=== PATIENT | male | born 1985 | race Caucasian/White ===

== ENCOUNTER 2019-12-10 12:53 | Outpatient (RCR) | payer OTHER, SELFPAY ==
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
--- NOTE | 2020-02-27 10:00 | HP.PT.NRP ---
YOBANI LOWE was seen in my office for initial evaluation on 12/10/19. The following Plan of Care was established for this patient: Initial Frequency: 2x /Week Initial Duration: 7WEEKS Patient/Client Instruction: Educate patient on: Condition, Plan of Care For the Purpose of:: To decrease pain, To increase ROM, To improve muscle performance and motor function, To improve ability to perform ADL's, To increase tolerance to activity/condition/position, To improve performance and independence with ADL's, To improve ability of physical actions for home/community/work/leisure, To improve health of tissue, To decrease soft tissue restriction, To increase flexibility/ROM, To improve ability to perform tasks related to life management Therapeutic Exercise to Include: Strength training, Body mechanics, Postural training, Flexibilty training, In an aquatic setting, Dynamic Lumbar Stabilization For the Purpose of:: To decrease pain, To increase ROM, To improve muscle performance and motor function, To improve ability to perform ADL's, To increase tolerance to activity/condition/position, To improve ability of physical actions for home/community/work/leisure, To improve health of tissue, To decrease soft tissue restriction, To increase flexibility/ROM, To improve ability to perform tasks related to life management This patient was last seen in our office . Pertinent comments regarding their Physical therapy will appear below: Patient seen for PT intial Evalutaion for Aquatic PT but didnt return At this point I will be discontinuing this patient from physical therapy. I would be happy to see this patient again in the future if found appropriate by the physician. Thank you! David Talavera, PT, Cert MDT, OCS
== END 2019-12-10 19:00 | disposition home or self-care (01) ==
LOC: PT 12:53
DX: M54.5 Low back pain (principal)
CPT/HCPCS: 97162

== ENCOUNTER → 2021-02-11 13:15 | Outpatient (CLI) | payer MEDICARE, MEDICAID, SELFPAY ==
--- NOTE | 2021-02-11 13:35 | RAD_ITS ---
STUDY: X-RAY - LUMBAR SPINE REASON FOR EXAM: Male, 35 years old. BACK PAIN TECHNIQUE: 3 view(s) of the lumbar spine were obtained. COMPARISON: None FINDINGS: Normal lumbar lordosis. There is no substantial scoliosis. There is a normal alignment of the vertebrae. No evidence for acute fracture or subluxation.. Mild narrowing L3-4 disc space. Mild multilevel endplate spurring. The soft tissue structures are unremarkable. RAD/Lumbar Spine 2 or 3 Views IMPRESSION: Mild degenerative changes. No acute fracture or other significant bony pathology Electronically Signed: Chuck Foster MD at 17:10 EDT , Service support ,
--- NOTE | 2021-02-11 13:35 | RAD_ITS ---
STUDY: X-RAY - CERVICAL SPINE REASON FOR EXAM: Male, 35 years old. BACK PAIN TECHNIQUE: 3 view(s) of the cervical spine were obtained. COMPARISON: None FINDINGS: Normal anterior atlantoaxial articulation. Normal odontoid process. Normal cervical lordosis. No evidence for acute fracture or subluxation.. Multilevel endplate spurring. Postsurgical changes status post fusion at C5-6. One of the surgical screws is broken. There does appear to be very subtle subchondral lucency of the superior endplate of C6 of indeterminate etiology likely representing loosening of the screw although inflammatory disease may have similar appearance. MRI or tagged white blood cell study would be useful for more definitive evaluation if clinically warranted The soft tissue structures are unremarkable. RAD/Cerv Spine 2 or 3 Views IMPRESSION: Spondylosis and postsurgical changes status post fusion of C5-6.. There is a broken screw as well as subchondral lucency likely representing loosening. Inflammatory disease not entirely excluded although less likely. However MRI or tagged white blood cell study would be helpful for further assessment if clinically indicated Electronically Signed: Chuck Foster MD at 17:09 EDT , Service support ,
--- NOTE | 2021-02-11 13:35 | RAD_ITS ---
STUDY: X-RAY - THORACIC SPINE REASON FOR EXAM: Male, 35 years old. BACK PAIN TECHNIQUE: 3 view(s) of the thoracic spine were obtained. COMPARISON: None. FINDINGS: Normal kyphosis of the thoracic spine. There is no substantial scoliosis. No evidence for acute fracture or subluxation. Disc space heights are well-maintained however there is mild multilevel endplate spurring. No lytic or sclerotic bony lesions are evident. The soft tissue structures are unremarkable. RAD/Thoracic Spine 3 Views IMPRESSION: Mild spondylosis. No acute fracture or other significant bony pathology Electronically Signed: Chuck Foster MD at 17:09 EDT , Service support ,
== END ==
PROVIDERS: Referring Provider Anesthesiology Pain Medicine; Visit Provider Anesthesiology Pain Medicine
DX: M54.9 Dorsalgia, unspecified (principal)
CPT/HCPCS: 72040; 72072; 72100

== ENCOUNTER 2022-02-10 10:16 | Emergency (ER) | payer MEDICARE, MEDICAID, SELFPAY ==
[2022-02-10 10:17] VITALS: BP 158/110; PULSE 87; RESP 14; TEMP 36.2; O2SAT 95; BMI 27.9
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
[2022-02-10] MEDS: Ketorolac 15 MG/ML Vial IV ×2 (10:40→12:33)
[2022-02-10] MEDS: 0.9% Normal Saline 1,000 ML 250 ML IV (10:40)
[2022-02-10 10:47] LABS: Bacteria 0 SEEN /hpf (None Seen); Mucous, Urine 0 SEEN /hpf (<or=2+); Squamous Epithelial Cells - UA 0 SEEN /hpf (0-5)
[2022-02-10 10:50] LABS: Color, Urine Yellow (Yellow); Glucose, Dipstick Normal (Normal); Ketone-Dipstick Negative (Negative); Leukocyte Esterase-Dipstick 25 /ul (Negative); Nitrite-Dipstick Negative (Negative); Occult Blood-Urine 50 /ul (Negative); Protein-Dipstick Negative (Negative); Specific Gravity, Urine 1.005 (1.002-1.030); Urine Bilirubin Dipstick Negative (Negative); Urine Clarity Clear (Clear); Urine Urobilinogen Normal (Normal)
[2022-02-10 10:51] LABS: Absolute Lymphocyte Count 2.14 X10^3/uL (0.83-4.51); Absolute Neutrophil Count 9.6 X10^3/uL (2.0-7.7); Basophil% 0.7 % (0-1); Eosinophil# 0.43 X10^3/uL; Eosinophils% 3.2 % (0-5); Hematocrit 40.8 % (40-54); Hemoglobin 13.7 g/dL (13.0-16.5); Lymphocyte # 2.14 X10^3/ul (0.83-4.51); Lymphocyte % 15.7 % (19-41); Mean Corp Hgb Conc 33.6 g/dL (32-36); Mean Corpuscular Hgb 29.3 pg (27.0-32.0); Mean Corpuscular Volume 87.2 fL (80-94); Mean Platelet Vol. 11.3 fl (6.2-12.0); Monocyte# 1.23 X10^3/uL; NRBC Flagged by Analyzer 0 % (0-5); Neutrophil # 9.64 X10^3/uL (2.7-7.7); Neutrophil % 70.7 % (47-70); Platelet Count 330 K/mm3 (150-450); RBC Distribution Width CV 12.3 % (11.6-14.6); RBC Distribution Width SD 39.5 fl (35.1-43.9); Red Blood Count 4.68 M/mm3 (4.6-6.2); White Blood Count 13.6 K/mm3 (4.4-11.0)
--- NOTE | 2022-02-10 10:55 | CT_ITS ---
STUDY: CT ABDOMEN AND PELVIS WITHOUT CONTRAST REASON FOR EXAM: Male, 36 years old. Left flank pain. History of multiple renal stones. RADIATION DOSAGE (If Supplied By Facility): CTDIvol = ( 10 ) mGy, DLP = ( 524.02 ) mGycm TECHNIQUE: Transaxial images were obtained from the dome of the diaphragm to the symphysis pubis without oral contrast, and without intravenous contrast. Sagittal and coronal images were reconstructed. Individualized dose optimization techniques were used for this CT. COMPARISON: Comparison is made with prior study dated 01/09/2017. FINDINGS: The visualized lung bases are unremarkable. The visualized portions of the heart are within normal limits. Normal liver. Normal gallbladder and extrahepatic biliary system. Normal spleen. Normal pancreas. Normal bilateral adrenal glands. Normal right kidney. The left kidney is engorged. Moderate degree of the left hydronephrosis and left hydroureter due to a 6.3 mm calculus at the left ureterovesical junction. Normal visualized stomach. Normal small intestine. There are scattered colonic diverticula consistent with diverticulosis. The appendix is visualized and appears normal. There is scattered atherosclerotic calcification of the abdominal aorta, without a demonstrated aneurysm. Normal inferior vena cava. There is borderline retroperitoneal lymphadenopathy with enlarged nodes no greater than 10mm in the short axis diameter. Normal urinary bladder. There are prostatic calcifications. There is a small umbilical hernia containing fat. Normal osseous structures. CT/Abdomen/Pelvis without Cont IMPRESSION: 6.3 mm calculus at left ureterovesical junction causing a moderate degree of left hydronephrosis and hydroureter. Electronically Signed: Ton Xiao MD at 11:59 EDT ,
[2022-02-10 10:58] LABS: Red Blood Cells-Urine 0-5 SEEN /hpf (0-5); White Blood Cells 0-5 SEEN /hpf (0-5)
[2022-02-10 11:03] LABS: Anion Gap 2 (5-15); BUN 15 mg/dL (7-18); BUN/Creat Ratio 11.4 RATIO (10-20); Chloride 103 mmol/L (98-107); Creatinine, Serum 1.32 mg/dL (0.70-1.30); EST Glomerular Filtration Rate 66 mL/min (>60); Est Glom Filt Rate - Afr Amer 80 mL/min (>60); Estimated Creatinine Clearance 73.72 ml/min; Glucose 104 mg/dL (74-106); Potassium 4.4 mmol/L (3.5-5.1); Sodium Level 134 mmol/L (136-145)
[2022-02-10] MEDS: Morphine 4 MG/ML Syringe IV (12:33)
[2022-02-10 13:01] VITALS: BP 124/73; PULSE 69; RESP 15; O2SAT 99
== END 2022-02-10 13:01 | disposition home or self-care (01) ==
PROVIDERS: Emergency Provider Emergency Medicine; Visit Provider Emergency Medicine
DX: N13.2 Hydronephrosis with renal and ureteral calculous obstruction (principal); N13.4 Hydroureter; F17.210 Nicotine dependence, cigarettes, uncomplicated; Z87.442 Personal history of urinary calculi; Z79.899 Other long term (current) drug therapy
CPT/HCPCS: 74176; 80048; 81001; 85025; 96361; 96374; 96375; 96376; 99283; J7030; A4216

== ENCOUNTER 2022-05-29 07:59 | Outpatient (CLI) | payer MEDICARE, MEDICAID, SELFPAY ==
--- NOTE | 2022-05-29 08:00 | MRI_ITS ---
STUDY: MRI LEFT SHOULDER REASON FOR EXAM: Left shoulder pain for 6 months. TECHNIQUE: Standardized fat and water weighted pulse sequences were obtained in all 3 orthogonal planes. COMPARISON: Radiographs 05/12/2022. FINDINGS: There is mild supraspinatus/infraspinatus tendinosis (T2 sagittal image 16) without discrete tendon tear. Normal subscapularis tendon. Normal teres minor tendon. Normal supraspinatus muscle. Normal infraspinatus muscle. Normal subscapularis muscle. Normal teres minor muscle. Normal glenohumeral articulation. There is a small cyst in the posterior greater tuberosity. There is a possible SLAP lesion (proton-density coronal images 13, 14). Normal intracapsular long biceps tendon. Normal capsulo- ligamentous complex. There is acromioclavicular arthrosis with capsular thickening effacing the subacromial fat (T2 sagittal images 6-8). There is a Type I morphology (flat undersurface), with a neutral orientation. There is no subacromial-subdeltoid bursal fluid. Normal visualized coracohumeral and coracoacromial ligaments. Normal deltoid muscle. Normal trapezius muscle. MRI/Upper Ext Joint Only(Routine) IMPRESSION: Mild supraspinatus/infraspinatus tendinosis without demonstrated rotator cuff tear. Possible SLAP lesion. Acromioclavicular arthrosis. Electronically Signed: Jack Escalante MD at 17:47 EDT ,
--- NOTE | 2022-05-29 08:00 | MRI_ITS ---
STUDY: MRI RIGHT SHOULDER REASON FOR EXAM: Male, 36 years old. RIGHT shoulder pain s/p previous dislocation RIGHT shoulder pain s/p previous dislocation TECHNIQUE: Standardized fat and water weighted pulse sequences were obtained in all 3 orthogonal planes. COMPARISON: 05.12.22 xr. FINDINGS: There is supraspinatus tendinosis with tendon thickening, but without a demonstrated tendon tear. Normal infraspinatus tendon. There is subscapularis tendinosis with tendon thickening, but without a demonstrated tendon tear. Normal teres minor tendon. Normal supraspinatus muscle. Normal infraspinatus muscle. Normal subscapularis muscle. Normal teres minor muscle. Normal glenohumeral articulation. There is a possible SLAP lesion (proton-density coronal images 11). There is a small cyst in the posterior greater tuberosity. Normal intracapsular long biceps tendon. Normal labrum. Normal capsulo- ligamentous complex. Normal rotator interval. 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 There is a Type I morphology (flat undersurface), with a neutral orientation. There is minimal fluid distention of the subacromial bursa, consistent with mild subacromial-subdeltoid bursitis. Normal visualized coracohumeral and coracoacromial ligaments. Normal quadrilateral space. Normal axillary space. Normal deltoid muscle. Normal trapezius muscle. MRI/Upper Ext Joint Only(Routine) IMPRESSION: There is minimal fluid distention of the subacromial bursa, consistent with mild subacromial-subdeltoid bursitis. Possible SLAP lesion. Acromioclavicular arthrosis. Mild supraspinatus/subscapularis tendinosis Electronically Signed: Nick Elena MD at 19:22 EDT Reading Location ID and State: [facility] / [place] , Service support ,
== END 2022-05-29 23:59 | disposition home or self-care (01) ==
LOC: MRI 08:00
DX: M24.411 Recurrent dislocation, right shoulder (principal); M25.511 Pain in right shoulder
CPT/HCPCS: 73221

== ENCOUNTER → 2022-07-05 | Outpatient (CLI) | payer MEDICARE, MEDICAID, SELFPAY ==
--- NOTE | 2022-07-05 10:34 | MRI_ITS ---
STUDY: MR RIGHT SHOULDER ARTHROGRAPHY REASON FOR EXAM: Right shoulder pain for more than 10 years, evaluate for SLAP lesion/labral tear. TECHNIQUE: Standardized fat and water weighted pulse sequences were obtained in all 3 orthogonal planes after intra-articular instillation of dilute gadolinium. COMPARISON: MRI images 05/29/2022, radiographs 05/12/2022. FINDINGS: Normal supraspinatus tendon. Normal infraspinatus tendon. Normal subscapularis tendon. Normal teres minor tendon. Normal supraspinatus muscle. Normal infraspinatus muscle. Normal subscapularis muscle. Normal teres minor muscle. Normal glenohumeral articulation. There is a very small cyst in the posterior aspect of the greater tuberosity. There is a SLAP lesion (T1 coronal images 10-12; T1 axial image 8). Normal intracapsular long biceps tendon. Normal capsulo- ligamentous complex. Normal rotator interval. Normal acromioclavicular articulation. There is a Type I morphology (flat undersurface), with a neutral orientation. There is no subacromial-subdeltoid bursal fluid. Normal visualized coracohumeral and coracoacromial ligaments. There is mild iatrogenic edema in the proximal anterior deltoid muscle. Normal trapezius muscle. MRI/Upper Ext Jt Only W/Contrast IMPRESSION: SLAP lesion. Electronically Signed: Jack Escalante MD at 12:17 EDT ,
--- NOTE | 2022-07-05 10:37 | RAD_ITS ---
CLINICAL HISTORY: Male, 36 years old. Right shoulder pain. Repeat dislocations. PROCEDURE: ARTHROGRAM - RIGHT SHOULDER CONSENT: The procedure as well as some possible complications including infection and bleeding were explained to the patient. Informed consent was obtained. FLUOROSCOPY TIME (if supplied): (33 seconds) minutes/seconds. Injection Information: 10 cc of dilute MRI contrast Number of images obtained: 4 TECHNIQUE: (All elements of maximal sterile barrier technique followed, including US elements as applicable) The patient was in the supine position. The overlying skin was prepped and draped in the usual sterile fashion. Following local anesthetic application and under direct fluoroscopic guidance, a 22-gauge spinal needle was placed into the shoulder joint. 2 cc of ISOVUE 300 was injected for confirmation. Following this, 10 cc of dilute MR contrast was injected. The patient tolerated the procedure well. RAD/Arthrogram Shoulder w/ MRI IMPRESSION: Successful right shoulder arthrogram for MRI examination. The patient tolerated the procedure well. Electronically Signed: Ton Xiao MD at 12:10 EDT ,
[2022-07-05] MEDS: Lidocaine 2% (10 ml mdv) 10 ML Vial INFILT (10:46)
[2022-07-05] MEDS: Iopamidol 10 ML in Syringe 1 EACH 600 ML INTRAARTIC (10:48)
[2022-07-05] MEDS: Gadoterate Meglumine Diluted 10 ML, Iopamidol 5 ML, Lidocaine 1% (20 ml mdv) 5 ML, Epin... INTRAARTIC (10:48)
== END | disposition home or self-care (01) ==
LOC: RAD 10:25
PROVIDERS: Referring Provider Orthopaedic Surgery Sports Medicine; Visit Provider Orthopaedic Surgery Sports Medicine
DX: M25.311 Other instability, right shoulder (principal); M25.511 Pain in right shoulder
CPT/HCPCS: 23350; 73222; 77002; Q9967

== ENCOUNTER 2022-11-03 10:08 | Day surgery (SDC) | payer MEDICARE, MEDICAID, SELFPAY ==
[2022-11-03] MEDS: Lactated Ringers 1,000 ML 15 ML IV (11:14)
[2022-11-03 11:15] VITALS: BP 124/89; PULSE 83; RESP 18; TEMP 37.2; O2SAT 99; BMI 26.6
--- NOTE | 2022-11-03 11:50 | TESH_PTH ---
PATIENT: YOBANI LOWE LOC: [facility] U#:[id number] AGE/SX: 36/M ROOM: RE11/03/[address]: Dr. Allen Amezcua MD : 1985 BED: DIS: 11/03/2022 SPEC #: [id number] RECD: 11/03/22 16:37 STATUS: FELIPE FREDY #: [id number] JAMIN: 11/03/22 11:[address]: Allen Amezcua DEPT: SURGICAL PATHOLOGY RECD BY: Johanne Schmidt ENTERED: 11/04/22 10:17 SP TYPE: TENDON OTHR DR: [facility] Tissues: Tendon and tendon sheath, NOS Procedures: Surgery Specimen Level III HEADER OPERATION: Arthroscopy shoulder, biceps tenodesis, debridement PRE-OP DIAGNOSIS: Superior labrum anterior to posterior tear of right shoulder TISSUE SUBMITTED: Right bicep tendon MICROSCOPIC DIAGNOSIS Right bicep tendon: A piece of dense fibroconnective tissue with reactive changes. SJ:sd 11/05/2022 MICROSCOPIC DESCRIPTION Slides are reviewed. GROSS DESCRIPTION Received in fixative is one container labeled with the patient's name and designated right bicep tendon. The specimen consists of a piece of childs, indurated, tendinous tissue measuring 3 x 1 x 0.3 cm. The entire specimen is submitted in one cassette. / JARON:sd 11/04/2022 TC:5 CPT: 60931
--- NOTE | 2022-11-03 12:55 | HP.PCM_ITS ---
HPI - General HPI Narrative YOBANI LOWE, is a 36 M who presents for right shoulder arthroscopy, SAD and SLAP tear for biceps tenodesis. RAB discussed. No changes to h and p. Wishes to proceed. Narcotic counselling. Right shoulder marked, discussed with anesthesia pre op block. MR#: [id number] Acct: [id number] Name:? YOBANI LOWE Rep #: [id number] : 1985 ? ? Provider: Dr. Allen Amezcua MD Age/Sex:? 36/M ? ? Location: [facility] [place].[facility] Status: Signed Intake Intake Visit Reasons:?RIGHT SHOULDER Allergies meperidine [From Demerol] Adverse Reaction (Verified 10/18/22 11:19) Other Medications buspirone 15 mg tablet 15 mg PO LUNCH 02/10/22 [History Confirmed 10/18/22] buspirone 30 mg tablet 20 mg PO BID 02/10/22 [History Confirmed 10/18/22] meloxicam 7.5 mg tablet 7.5 mg PO DAILY 02/10/22 [History Confirmed 10/18/22] propranolol 120 mg capsule,24 hr,extended release 120 mg PO DAILY 02/10/22 [History Confirmed 10/18/22] trazodone 50 mg tablet 50 mg PO QHS 02/10/22 [History Confirmed 10/18/22] tamsulosin 0.4 mg capsule 0.4 mg PO 05/12/22 [History Confirmed 10/18/22] baclofen 5 mg tablet 10 mg PO 06/04/22 [History Confirmed 10/18/22] PFSH Medical History?(Updated 06/04/22 @ 11:35 by Allen Amezcua MD) Hx of renal calculi Instability of right shoulder joint Kidney stones Neck fracture Pain management Superior labrum cffucopv-du-bacmydidu (SLAP) tear of left shoulder Superior labrum uxulpwtn-na-rwoywuvql (SLAP) tear of right shoulder TBI (traumatic brain injury) Tibia/fibula fracture Surgical History? History of ankle surgery Hx of arthroscopic knee surgery Hx of fusion of cervical spine Social History? Smoking Status:? Current every day smoker tobacco type: cigarettes HPI RIGHT SHOULDER Details: Parts of this documentation were recorded by a scribe, this documentation accurately reflects the service provided and the decisions made by me, Dr. Allen Amezcua MD 10/18/22 3311. YOBANI LOWE is a 36 year old M here today for follow-up right shoulder MRI arthrogram to assess SLAP tear and instability.? He has been doing physical therapy at least 6 weeks now through [facility].? He does have clicking and catching especially anteriorly of the shoulder feels like something is catching and clicking [id number].? No instability episodes.? Still has pain in the shoulder feels like it swells intermittently and worse with lifting he has 2 young children.? He is here with him and his . Ortho Exam General General: Yes no acute distress and Yes well groomed Neurologic: Yes alert and Yes oriented x3 Psychologic: Yes reasonable and appropriate Right Shoulder Testing: Positive Hawkin's, Speed's, TTP Biceps, AROM-Forward Elevation 0-180, PROM-External Rotation at side 0-60 and Howell (caused pain both ways, worse with supination); Negative Neer's, TTP AC Joint, Drop Arm, Apprehension Test, translation or Load and Shift Supplemental Info MR#:? [id number] Acct: [id number] Name:? YOBANI LOWE Rep #: [id number] :?? 1985 M 36 ? From:? ? Jack Escalante MD PCP: [facility] ? Status: REG CLI Study: Upper Ext Jt Only W/Contrast ? Date of Exam: 07/05/22 Exam# [id number] ? Ordering Dr:? Allen Amezcua MD STUDY: ? MR RIGHT SHOULDER ARTHROGRAPHY REASON FOR EXAM: Right shoulder pain for more than 10 years, evaluate for SLAP lesion/labral tear. TECHNIQUE: ? Standardized fat and water weighted pulse sequences were obtained in all 3 orthogonal planes after intra-articular instillation of dilute gadolinium. COMPARISON: ? MRI images 05/29/2022, radiographs 05/12/2022. FINDINGS: Normal supraspinatus tendon. Normal infraspinatus tendon. Normal subscapularis tendon.? Normal teres minor tendon. Normal supraspinatus muscle.? Normal infraspinatus muscle.? Normal subscapularis muscle.? Normal teres minor muscle. Normal glenohumeral articulation.? There is a very small cyst in the posterior aspect of the greater tuberosity.? There is a SLAP lesion (T1 coronal images 10-12; T1 axial image 8).? Normal intracapsular long biceps tendon.? Normal capsulo- ligamentous complex.? Normal rotator interval. Normal acromioclavicular articulation.? There is a Type I morphology (flat undersurface), with a neutral orientation. There is no subacromial-subdeltoid bursal fluid. Normal visualized coracohumeral and coracoacromial ligaments. There is mild iatrogenic edema in the proximal anterior deltoid muscle. Normal trapezius muscle. MRI/Upper Ext Jt Only W/Contrast IMPRESSION: SLAP lesion. ? Electronically Signed: Jack Escalante MD at 12:17 EDT Reading Location ID and State: [facility] / [place] Tel , Service support? , ? Coding Level of Care Code Off vis,est,level 4 Diagnoses Superior labrum qnjlktmi-ks-bnimazxwz (SLAP) tear of right shoulder? S43.431A Time Spent (min) 30 Assessment and Plan Assessment and Plan (1) Superior labrum rbtuhach-us-zdmvnregl (SLAP) tear of right shoulder: ?Status:?Acute ?Plan: 36-year-old man with right shoulder SLAP tear confirmed on MRI arthrogram.? Even on his physical exam with circumduction and range of motion testing of the shoulder it feels like the biceps tendon is subluxing.? He has good range of motion good strength however some mild tendinosis of the supraspinatus tendon on his MRI.? We discussed the nonoperative means of continuing conservative management as well as shoulder surgery.? My recommendation if he is desiring surgical management of this would be right shoulder arthroscopy, biceps tenodesis I perform this in a subpectoral manner with the Arthrex button technology as well as possible debridement and subacromial decompression given the location of his pain occasionally on the lateral side of his arm as well as some mild tendinosis to examine the rotator cuff tendons.? He would like to go ahead with this sign consent form for surgery as well as possible need for blood products. Pros and cons risks and benefits were discussed with the patient including but not limited to infection, pain, stiffness, bleeding, damage to surrounding structures, neurovascular injury, recurrence or retear, failure or wear of hardware or fixation, instability, fracture, deep vein thrombosis and pulmonary embolism, anesthetic risks, patient dissatisfaction, need for further surgery and other risks.? Patient understood and wished to proceed with surgery, and signed the informed consent documentation. COUNT INCLUDES [facility] Medical History (Updated 10/25/22 @ 13:36 by Mercedez Haynes) Abrasion Anxiety Arthritis Back pain Chronic cough Former smoker History of renal disease Hx of renal calculi Injury of head and neck Instability of right shoulder joint Kidney stones Marijuana use Migraine headache MRSA infection Neck fracture Pain management Superior labrum ojaqcuug-ja-ulhfvxrql (SLAP) tear of left shoulder Superior labrum wnsexbam-pa-frqifdnfj (SLAP) tear of right shoulder TBI (traumatic brain injury) Tibia/fibula fracture Home Medications buspirone 15 mg tablet 15 mg PO LUNCH 02/10/22 [History Last Taken Unknown] buspirone 30 mg tablet 20 mg PO BID 02/10/22 [History Last Taken 11/03/22] meloxicam 7.5 mg tablet 7.5 mg PO DAILY 02/10/22 [History Last Taken Unknown] propranolol 120 mg capsule,24 hr,extended release 120 mg PO DAILY 02/10/22 [History Last Taken 11/03/22] trazodone 50 mg tablet 50 mg PO QHS 02/10/22 [History Last Taken Unknown] tamsulosin 0.4 mg capsule 0.4 mg PO DAILY 05/12/22 [History Last Taken Unknown] baclofen 5 mg tablet 10 mg PO DAILY 06/04/22 [History Last Taken Unknown] Allergy/AdvReac Type Severity Reaction Status Date / Time meperidine [From Demerol] AdvReac Other Verified 10/18/22 11:19 Surgical History (Updated 10/25/22 @ 13:36 by Mercedez Haynes) History of ankle surgery History of surgery Hx of arthroscopic knee surgery Hx of fusion of cervical spine Social History Smoking Status: Current every day smoker tobacco type: cigarettes Vital Signs Vital Signs Vital Signs: 11/03/22 11:15 11/03/22 11:15 Temperature 98.9 F Temperature Source Temporal Pulse Rate 83 Respiratory Rate 18 Respiratory Pattern Normal Blood Pressure 124/89 H Blood Pressure Mean 100 Blood Pressure Source Monitor Blood Pressure Position Semi-Fowlers Blood Pressure Location Left Arm Pulse Ox 99 Oxygen Delivery Method Room Air Weight Weight: 170 lb Body Mass Index (BMI) 26.6
[2022-11-03] MEDS: Cefazolin 2 GM in 0.9% Normal Saline 100 ML IV (13:30)
--- NOTE | 2022-11-03 14:52 | DCINST_ITS ---
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 Discharge Plan Admission Attending Provider: Allen Amezcua Primary Care Provider: [facility] Discharge Orders/Prescriptions Prescriptions: New oxycodone-acetaminophen [Percocet] 5-325 mg tablet 1 tab PO Q4H MDD 6 PRN (Reason: pain) 7 Days Qty: 30 0RF No Action tamsulosin 0.4 mg capsule 0.4 mg PO DAILY Label Comments: TAKE 1 CAPSULE BY MOUTH EVERYDAY AT BEDTIME baclofen 5 mg tablet 10 mg PO DAILY Label Comments: TAKE 1 TABLET BY MOUTH EVERY DAY trazodone 50 mg Tablet 50 mg PO QHS meloxicam 7.5 mg Tablet 7.5 mg PO DAILY buspirone [BuSpar] 30 mg Tablet 20 mg PO BID propranolol 120 mg Capsule,Extended Release 24 Hr 120 mg PO DAILY buspirone [BuSpar] 15 mg Tablet 15 mg PO LUNCH Referrals / Follow Up: Allen Amezcua MD [Med Staff - Active Staff] - [facility] [Primary Care Provider] - Disposition Disposition (needs filled in before D/C Order can be placed): Home, Self Care
--- NOTE | 2022-11-03 14:56 | PCM.OPRPT ---
Problems Associated Problem List Diagnoses (1) Superior labrum ofzduxht-kk-rizqtgyxj (SLAP) tear of right shoulder: Report of Operation Date of Procedure: 11/03/22 Pre-Operative Diagnosis: right slap tear and impingement Post-Operative Diagnosis: same Surgery/Procedure Performed:: right shoulder arthroscopy, subpectoral biceps tenodesis, subacromial decompression Description of Surgical Findings:: type 2 slap, moderate bursitis inflammatory Surgeon: Allen Amezcua Type of Anesthesia: Block,Regional and General Anesthesiologist: Sunil Marroquin Estimated Blood Loss (mL): 50 Description of Procedure: Patient brought to the operating room theater.? Placed supine on the operating room table.? All bony prominences appropriately padded.? SCDs on legs.? General anesthesia induced.? 2 g IV Ancef administered prior to the start of the procedure.? Patient transferred right side up lateral decubitus.? Axillary roll used.? 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 Upper extremity prepped and draped in the usual sterile fashion with chlorhexidine-based prep solution allowing over 3 minutes drying time prior to draping.? Sleeve with 10 pounds traction with the arm in 30 degrees of abduction was used.? Preoperative timeout performed to confirm the site patient and surgery. Began by inserting the arthroscope through a standard posterior portal into the intra-articular portion of the right shoulder.? Cartilage was normal on both sides.? Anterior and posterior labrum normal. Subscapularis was normal.? No loose bodies. Axillary recess and bare area normal.? Undersurface of the supraspinatus normal. Anterior portal was made through the rotator interval just posterior to the biceps tendon through an inside-out spinal needle localization procedure.? Superior aspect of the biceps had a type II SLAP with fraying and partial detachment.? I elected to perform a biceps tenotomy in preparation for subpectoral biceps tenodesis.? The rest of the intra-articular portion of the shoulder appeared normal.? Remaining biceps stump and superior labrum gently debrided to stable margins. I then inserted the arthroscope into the subacromial space.? There is moderate amount of inflammatory bursitis.? I performed a complete bursectomy through an accessory lateral portal.? I debrided the undersurface of the acromion.? Slight prominence under surface acromion.? I used a chanelle to perform a subacromial decompression to flat smooth margins.? I took arthroscopy pictures throughout.? Again I probed on the superior and inferior surface of the rotator cuff to ensure that there was no partial-thickness tears.? Supraspinatus and IS tendon appeared healthy. I then turned my attention to the open part of the operation.? Made a small 1.5 inch incision centered over the long head of the biceps tendon distal to the pectoralis major insertion.? I carried the dissection down through skin and subcutaneous tissue achieved meticulous hemostasis.? I incised the fascial layer.? I retracted the cephalic vein medially.? Identified long head of the biceps I delivered this through the incision.? I used the Arthrex button loop technique 5 throws with a #2 FiberWire suture on a straight Kris needle.? I locked the suture distally cut at the splice.? I passed the suture tails in opposite directions through the metal button.? I then used the spade tip drill bit at the biceps groove just distal to the pectoralis major insertion.? I drilled uni cortically in the groove.? Irrigated.? I passed and? flipped the button then delivered the tendon to the tunnel.? I then used Ward needle to deliver 1 suture tail through the long head of biceps and then 5 interrupted half hitches to lock this and cut the suture short.? Again wound thoroughly irrigated subcutaneous tissue closed with 2-0 Vicryl and skin with 3-0 Monocryl.? Meticulous hemostasis.? Skin cleaned with wet and dry dressing followed by Steri-Strips Adaptic 4 x 4 gauze abdominal pads and cloth tape with a sling for the upper extremity. Patient woken up for the general anesthetic transferred off the operating room table and taken to postanesthetic care unit in stable condition.? All sponge needle instrument counts were correct no complications.? Plan to the patient gentle pendulum exercises 4 times a day and follow-up in the office in 2 days time. Spoke with Margarita after the operation, again post op instructions relayed. Narcotic counselling. Grafts/Implants Used: arthrex biceps metal button Complications none Admit VTE Documentation VTE Present on Admission: No VTE Mechan Device Prophylaxis: SCD's Reason prophylaxis not ordered:: Treatment Not Indicated Procedures Musculoskeletal [id number]: Other Procedure See Report
[2022-11-03 15:05] VITALS: BP 124/89; BP 135/81; PULSE 75; RESP 16; TEMP 36.4; O2SAT 96
[2022-11-03 15:15] VITALS: BP 124/89; BP 134/89; PULSE 61; RESP 18; O2SAT 97
--- NOTE | 2022-11-03 15:20 | SUR.PHASEI ---
Placed ice to right shoulder.
[2022-11-03 15:30] VITALS: BP 124/89; BP 132/97; PULSE 62; RESP 16; O2SAT 99
[2022-11-03 15:40] VITALS: BP 124/89; BP 132/100; PULSE 63; RESP 18; TEMP 36.3; O2SAT 96
[2022-11-03 16:35] VITALS: BP 124/89
== END 2022-11-03 16:59 | disposition home or self-care (01) ==
LOC: SDC 10:08 → AC 10:09
PROVIDERS: Referring Provider Orthopaedic Surgery Sports Medicine; Visit Provider Orthopaedic Surgery Sports Medicine
PROC: (CPT 29805; principal; 2022-11-03 11:30)
DX: S43.431A Superior glenoid labrum lesion of right shoulder, initial encounter (principal); F17.200 Nicotine dependence, unspecified, uncomplicated; R05.3 Chronic cough; Z98.1 Arthrodesis status; M25.811 Other specified joint disorders, right shoulder
CPT/HCPCS: 29822; 29826; 01630; 88304; J7120; J2405

== ENCOUNTER 2023-08-09 15:00 | Emergency (ER) | payer MEDICARE, MEDICAID, SELFPAY ==
[2023-08-09 15:01] VITALS: BP 111/83; PULSE 70; RESP 18; TEMP 36.2; O2SAT 100; BMI 26.2
--- NOTE | 2023-08-09 15:09 | CT_ITS ---
STUDY: CT ABDOMEN AND PELVIS WITHOUT CONTRAST REASON FOR EXAM: Male, 37 years old. Kidney Stone. Right flank pain. RADIATION DOSAGE (If Supplied By Facility): CTDIvol = ( 7.54 ) mGy, DLP = ( 389.91 ) mGycm TECHNIQUE: Transaxial images were obtained from the dome of the diaphragm to the symphysis pubis without oral contrast, and without intravenous contrast. Sagittal and coronal images were reconstructed. Individualized dose optimization techniques were used for this CT. COMPARISON: Comparison is made with prior study dated February 10, 2022. FINDINGS: The visualized lung bases are unremarkable. The visualized portions of the heart are within normal limits. Normal liver. Normal gallbladder and extrahepatic biliary system. Normal spleen. Normal pancreas. Normal bilateral adrenal glands. Minimal fullness of the right renal pelvis. Normal left kidney. Normal visualized stomach. Normal small intestine. There are scattered colonic diverticula consistent with diverticulosis. There are surgical clips in the region of the appendix consistent with a prior appendectomy. Normal abdominal aorta. Normal inferior vena cava. Normal retroperitoneum. Diffuse bladder wall thickening although the bladder is not completely distended at this time. There are prostatic calcifications. There is a small umbilical hernia containing fat. Normal osseous structures. CT/Abdomen/Pelvis without Cont IMPRESSION: No obstructive uropathy is seen at this time. Electronically Signed: Ton Xiao MD at 15:46 EDT ,
--- NOTE | 2023-08-09 15:10 | ED.VIS.BACK ---
HPI History of Present Illness Chief Complaint: Back Informant: patient Narrative Narrative: Worsening nontraumatic back pain over 2 days. Pain now radiating around his right side. No urinary symptoms. No nausea or vomiting. History of kidney stones, last time this past spring that passed on his own. He is required intervention in the past. He is followed by [facility] urology along with [place] [facility]. Denies history gastric ulcers or kidney injury. Denies pain down the legs. Denies any bowel or bladder issues. Prior similar symptoms: Yes PFSH PFSH Medical History Abrasion Anxiety Arthritis Back pain Chronic cough Former smoker History of renal disease Hx of renal calculi Injury of head and neck Instability of right shoulder joint Kidney stones Marijuana use Migraine headache MRSA infection Neck fracture Pain management Superior labrum vfklljou-jm-pjamjidpl (SLAP) tear of left shoulder Superior labrum mziibcsf-lz-giejuhase (SLAP) tear of right shoulder TBI (traumatic brain injury) Tibia/fibula fracture Home Medications buspirone 15 mg tablet 15 mg PO LUNCH 02/10/22 [History Last Taken Unknown] buspirone 30 mg tablet 20 mg PO BID 02/10/22 [History Last Taken 11/03/22] meloxicam 7.5 mg tablet 7.5 mg PO DAILY 02/10/22 [History Last Taken Unknown] propranolol 120 mg capsule,24 hr,extended release 120 mg PO DAILY 02/10/22 [History Last Taken 11/03/22] trazodone 50 mg tablet 50 mg PO QHS 02/10/22 [History Last Taken Unknown] tamsulosin 0.4 mg capsule 0.4 mg PO DAILY 05/12/22 [History Last Taken Unknown] baclofen 5 mg tablet 10 mg PO BID 01/31/23 [History Last Taken Unknown] Allergy/AdvReac Type Severity Reaction Status Date / Time meperidine [From Demerol] AdvReac Other Verified 08/09/23 15:01 Surgical History History of ankle surgery History of surgery Hx of arthroscopic knee surgery Hx of fusion of cervical spine Social History Smoking Status: Current every day smoker tobacco type: cigarettes ROS ROS ED Constitutional Constitutional ED: Denies chills, fever(s) or sweats Eyes Eyes: Denies change in vision ENT ENT ED: Denies dysphagia or sore throat Cardiovascular Cardiovascular: Denies chest pain, leg edema, palpitations or racing heartbeat Respiratory/Chest Respiratory/Chest: Denies cough, dyspnea or dyspnea on exertion Gastrointestinal Gastrointestinal: Denies abdominal pain, diarrhea, nausea or vomiting Genitourinary Genitourinary ED: Denies dysuria, hematuria or urinary frequency Musculoskeletal Musculoskeletal: Reports back pain; Denies extremity pain or neck pain Integumentary Denies rash or wounds Neurologic Neurologic: Denies headache(s), paresthesias or weakness EXAM Physical Exam Const Vital Signs: 08/09/23 15:01 Temperature 97.1 F L Temperature Source Temporal Pulse Rate 70 Respiratory Rate 18 Blood Pressure 111/83 H Blood Pressure Mean 92 Pulse Ox 100 Oxygen Delivery Method Room Air Positive well nourished and well developed Constitutional Narrative: Nontoxic, mild sweats. General Appearance ED: well developed HEENT Reports moist mucous membranes normocephalic and atraumatic Eyes PERRL, EOMs intact bilaterally and conjunctivae normal General Eye ED: Yes normal appearance of both eyes Neck no lymphadenopathy and supple General: Negative for tenderness Chest Wall Chest: Negative for tenderness Resp normal respiratory effort and normal air movement Effort and Inspection: symmetric chest movement; Negative for respiratory distress Cardio regular rate, regular rhythm and no murmurs Peripheral Pulses: pulses 2+ throughout GI normal to inspection, nondistended, normoactive bowel sounds and non-tender Palpation: Negative for guarding or rebound tenderness present Back/Spine no CVA tenderness and no thoracic nor lumbar tenderness Extremity normal to inspection General Extremety ED: Negative for edema or tenderness General Extremity: Negative for edema Neuro oriented x3 and no sensory deficits noted Sensorium / Orientation: awake and alert Skin no rashes or lesions noted and no wounds MDM MDM MDM Narrative Medical decision making narrative: Interventions / MDM: Differential diagnosis: Kidney stones, musculoskeletal pain Diagnosis considered but do not suspect: Shingles however no current rash, no cauda equina symptoms My EKG interpretation: N/A Imaging independently reviewed and interpreted by myself: CT abdomen pelvis: No acute process also read by radiology. External documents reviewed: N/A Test considered but not ordered:N/A ED course: Patient nontoxic, vital stable. Radiating pain from the flank. Renal stone protocol initiated. IV fluids Toradol morphine ordered. CT scan ordered. 1600: Clinically feeling better on reexamination. Labs slight leukocytosis 11.7. Urine negative for infection.CT scan for any acute process. Unclear in etiology, he has no cauda equina symptoms. He reports [facility] He will keep these planned image studies. He does follow pain management for cervical spine injections from injuries in the past. He has ibuprofen at home to use as needed. All questions were answered. Re-evaluation: stable Disposition discussed with patient/family/significant other: Patient Case discussed with consulting clinician: N/A This note was generated with [employer] dictation software. It may contain incorrect words, spelling, and punctuation that were not noted in checking the note before signing. Lab Data Attestation: I reviewed the patient's lab results. Labs: Laboratory Results - last 24 hr 08/09/23 08/09/23 15:15 15:22 WBC 11.7 H RBC 4.58 L Hgb 13.5 Hct 41.3 MCV 90.2 MCH 29.5 MCHC 32.7 RDW Std Deviation 45.1 H RDW Coeff of Dayana 13.5 Plt Count 300 MPV 10.9 Immature Gran % (Auto) 0.700 Neut % (Auto) 57.0 Lymph % (Auto) 28.0 [place] % (Auto) 8.9 Eos % (Auto) 4.6 Baso % (Auto) 0.8 Absolute Neuts (auto) 6.7 Absolute Lymphs (auto) 3.27 Nucleated RBC % 0 Sodium 138 Potassium 4.3 Chloride 104 Carbon Dioxide 31.0 Anion Gap 3 L BUN 11 Creatinine 1.10 Estim Creat Clear Calc 87.63 Est GFR (MDRD) Af Amer 98 Est GFR (MDRD) Non-Af 81 BUN/Creatinine Ratio 10.0 Glucose 103 Calcium 9.1 Urine Color Yellow Urine Clarity Clear Urine pH 6.5 Ur Specific [place] 1.015 Urine Protein Negative Urine Glucose (UA) Normal Urine Ketones Negative Urine Occult Blood Negative Urine Nitrite Negative Urine Bilirubin Negative Urine Urobilinogen Normal Ur Leukocyte Esterase Negative Urine RBC 0 SEEN Urine WBC 0 SEEN Ur Squamous Epith Cells 0 SEEN Urine Bacteria 0 SEEN Urine Mucus 0 SEEN Radiography Diagnostic Testing: Clinical Impression(s) from Imaging Studies Abdomen/Pelvis CT 08/09/23 15:09 IMPRESSION: No obstructive uropathy is seen at this time. Electronically Signed: Ton Xiao MD at 15:46 EDT , Discharge Plan Triage Chief Complaint: Back Other Complaint: Flank Pain ED Provider: Eldon Drake Dx/Rx/DC Orders Clinical Impression: Acute right flank pain Instructions: ED Flank Pain, Uncertain Cause Prescriptions: No Action tamsulosin 0.4 mg capsule 0.4 mg PO DAILY Patient Comments: TAKE 1 CAPSULE BY MOUTH EVERYDAY AT BEDTIME baclofen 5 mg tablet 10 mg PO BID Patient Comments: TAKE 1 TABLET BY MOUTH EVERY DAY trazodone 50 mg Tablet 50 mg PO QHS meloxicam 7.5 mg Tablet 7.5 mg PO DAILY buspirone [BuSpar] 30 mg Tablet 20 mg PO BID propranolol 120 mg Capsule,Extended Release 24 Hr 120 mg PO DAILY buspirone [BuSpar] 15 mg Tablet 15 mg PO LUNCH Primary Care Provider: [facility] Referrals: [facility] [Primary Care Provider] - 3-5 Days Activity Restrictions/Additional Instructions: Continue plans with your MRI studies of your spine tomorrow. Your CT abdomen pelvis are negative today. Continue ibuprofen at home up to 600 mg every 6 hours. Disposition Disposition: Home, Self Care
[2023-08-09] MEDS: Ketorolac 30 MG/ML Syringe 15 MG IV (15:20)
[2023-08-09] MEDS: 0.9% Normal Saline (1000mL) 1,000 ML 250 ML IV (15:20)
[2023-08-09] MEDS: Morphine 4 MG/ML Syringe IV (15:21)
[2023-08-09 15:28] LABS: Bacteria 0 SEEN /hpf (None Seen); Mucous, Urine 0 SEEN /hpf (<or=2+); Red Blood Cells-Urine 0 SEEN /hpf (0-5); Squamous Epithelial Cells - UA 0 SEEN /hpf (0-5); White Blood Cells 0 SEEN /hpf (0-5)
[2023-08-09 15:30] LABS: Color, Urine Yellow (Yellow); Glucose, Dipstick Normal (Normal); Ketone-Dipstick Negative (Negative); Leukocyte Esterase-Dipstick Negative /ul (Negative); Nitrite-Dipstick Negative (Negative); Occult Blood-Urine Negative /ul (Negative); Protein-Dipstick Negative (Negative); Specific Gravity, Urine 1.015 (1.002-1.030); Urine Bilirubin Dipstick Negative (Negative); Urine Clarity Clear (Clear); Urine Urobilinogen Normal (Normal); Urine pH 6.5 (5.0 - 8.0)
[2023-08-09 15:33] LABS: Absolute Lymphocyte Count 3.27 X10^3/uL (0.83-4.51); Absolute Neutrophil Count 6.7 X10^3/uL (2.0-7.7); Basophil# 0.09 X10^3/uL; Basophil% 0.8 % (0-1); Eosinophil# 0.54 X10^3/uL; Eosinophils% 4.6 % (0-5); Hematocrit 41.3 % (40-54); Hemoglobin 13.5 g/dL (13.0-16.5); Lymphocyte # 3.27 X10^3/ul (0.83-4.51); Mean Corp Hgb Conc 32.7 g/dL (32-36); Mean Corpuscular Hgb 29.5 pg (27.0-32.0); Mean Corpuscular Volume 90.2 fL (80-94); Mean Platelet Vol. 10.9 fl (6.2-12.0); Monocyte# 1.04 X10^3/uL; Monocyte% 8.9 % (0-10); NRBC Flagged by Analyzer 0 % (0-5); Neutrophil # 6.65 X10^3/uL (2.7-7.7); Platelet Count 300 K/mm3 (150-450); RBC Distribution Width CV 13.5 % (11.6-14.6); RBC Distribution Width SD 45.1 fl (35.1-43.9); Red Blood Count 4.58 M/mm3 (4.6-6.2); White Blood Count 11.7 K/mm3 (4.4-11.0)
[2023-08-09 15:41] LABS: Anion Gap 3 (5-15); BUN 11 mg/dL (7-18); Calcium,Total 9.1 mg/dL (8.5-10.1); Chloride 104 mmol/L (98-107); EST Glomerular Filtration Rate 81 mL/min (>60); Est Glom Filt Rate - Afr Amer 98 mL/min (>60); Estimated Creatinine Clearance 87.63 ml/min; Glucose 103 mg/dL (74-106); Potassium 4.3 mmol/L (3.5-5.1); Sodium Level 138 mmol/L (136-145)
[2023-08-09 16:10] VITALS: BP 117/80; PULSE 66; RESP 16; O2SAT 100
== END 2023-08-09 16:15 | disposition home or self-care (01) ==
PROVIDERS: Emergency Provider Emergency Medicine; Visit Provider Emergency Medicine
DX: R10.9 Unspecified abdominal pain (principal); F17.210 Nicotine dependence, cigarettes, uncomplicated
CPT/HCPCS: 74176; 80048; 81001; 85025; 96361; 96374; 96375; 99283; J7030; A4216

== ENCOUNTER 2024-05-01 13:05 | Emergency (ER) | payer MEDICARE, MEDICAID, SELFPAY ==
[2024-05-01] VITALS (8 sets, daily range): BP systolic 111–126; BP diastolic 64–83; PULSE 89–107; RESP 14–18; TEMP 36.5–37.2; O2SAT 97–100; BMI 23.5
--- NOTE | 2024-05-01 15:15 | RAD_ITS ---
STUDY: X-RAY CHEST REASON FOR EXAM: Male, 38 years old. Fever. TECHNIQUE: Frontal view of the chest COMPARISON: None. FINDINGS: The lungs are clear. There are no pleural effusions. There is no pneumothorax. The heart is normal in size. The visualized osseous structures are within normal limits. RAD/Chest 1 View (Portable) IMPRESSION: No acute thoracic pathology. Electronically Signed: Carl Quiros MD at 15:54 EDT ,
[2024-05-01 15:30] LABS: Mucous, Urine 0 SEEN /hpf (<or=2+); Red Blood Cells-Urine 0 SEEN /hpf (0-5); Squamous Epithelial Cells - UA 0 SEEN /hpf (0-5); White Blood Cells 0 SEEN /hpf (0-5)
[2024-05-01 15:34] LABS: Color, Urine Yellow (Yellow); Glucose, Dipstick Normal (Normal); Ketone-Dipstick Negative (Negative); Leukocyte Esterase-Dipstick Negative /ul (Negative); Nitrite-Dipstick Negative (Negative); Occult Blood-Urine Negative /ul (Negative); Protein-Dipstick Negative (Negative); Urine Bilirubin Dipstick Negative (Negative); Urine Clarity Clear (Clear); Urine Urobilinogen Normal (Normal)
[2024-05-01] MEDS: oxyCODONE 5 MG Tablet 10 MG PO (15:44)
[2024-05-01 15:46] LABS: Amorphous Sediment 2+; Bacteria 1+ /hpf (None Seen)
[2024-05-01] MEDS: diazePAM 5 MG Tablet PO (15:53)
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
[2024-05-01 16:03] LABS: Absolute Lymphocyte Count 1.77 X10^3/uL (0.83-4.51); Absolute Neutrophil Count 7.7 X10^3/uL (2.0-7.7); Basophil# 0.04 X10^3/uL; Basophil% 0.4 % (0-1); Eosinophil# 0.24 X10^3/uL; Eosinophils% 2.2 % (0-5); Hematocrit 27.6 % (40-54); Hemoglobin 8.3 g/dL (13.0-16.5); Lymphocyte # 1.77 X10^3/ul (0.83-4.51); Lymphocyte % 16.3 % (19-41); Mean Corp Hgb Conc 30.1 g/dL (32-36); Mean Corpuscular Hgb 26.5 pg (27.0-32.0); Mean Corpuscular Volume 88.2 fL (80-94); Mean Platelet Vol. 9.3 fl (6.2-12.0); Monocyte# 0.97 X10^3/uL; Monocyte% 8.9 % (0-10); NRBC Flagged by Analyzer 0 % (0-5); Neutrophil # 7.69 X10^3/uL (2.7-7.7); Neutrophil % 70.5 % (47-70); POSITIVE COUNT YES; Platelet Count 877 K/mm3 (150-450); RBC Distribution Width CV 16.7 % (11.6-14.6); RBC Distribution Width SD 53.7 fl (35.1-43.9); Red Blood Count 3.13 M/mm3 (4.6-6.2); White Blood Count 10.9 K/mm3 (4.4-11.0)
[2024-05-01 16:30] LABS: ALB/GLOB Ratio 0.5 RATIO (0.9-2.4); AST(SGOT) 118 U/L (15-37); Alanine Aminotransfer ALT/SGPT 129 U/L (16-61); Albumin, Serum 2.4 g/dL (3.2-5.0); Alkaline Phosphatase 397 U/L (45-117); Anion Gap 4 (5-15); BUN 20 mg/dL (7-18); BUN/Creat Ratio 22.7 RATIO (10-20); Calcium,Total 9.6 mg/dL (8.5-10.1); Chloride 99 mmol/L (98-107); Creatinine, Serum 0.88 mg/dL (0.70-1.30); EST Glomerular Filtration Rate 104 mL/min (>60); Est Glom Filt Rate - Afr Amer 126 mL/min (>60); Globulin 5.2 g/dL (2.2-4.2); Glucose 98 mg/dL (74-106); Potassium 4.7 mmol/L (3.5-5.1); Protein, Total 7.6 g/dL (6.4-8.2); Sodium Level 133 mmol/L (136-145)
--- NOTE | 2024-05-01 17:19 | US_ITS ---
STUDY: Right upper quadrant GALLBLADDER REASON FOR VISIT: Male, 38 years old. TECHNIQUE: Ultrasound evaluation of the right upper quadrant was performed with real-time and static gaytan-scale imaging. TECHNICAL QUALITY: Adequate. COMPARISON: None. FINDINGS: Liver is enlarged measuring 16.8 cm demonstrating diffusely increased echogenicity. There is no mass or bile duct dilatation. Gallbladder: Normal distended gallbladder. The gallbladder wall measures 2 mm. There is a negative sonographic Alcazar''s sign. There is no pericholecystic fluid. There are no gallstones. Pancreas is normal in size and homogeneous echogenicity. Common Bile Duct (C.B.D.): The common bile duct measures 4 mm. Right kidney measures 13.7 x 6.2 x 6 cm. There are multiple nonobstructing calculi the largest measuring 1.1 x 0.7 x 0.6 cm US/Gallbladder IMPRESSION: Enlarged nonspecific fatty infiltrated liver. No evidence for gallstones or acute cholecystitis. Incidental finding of right nephrolithiasis.. Electronically Signed: Chuck Foster MD at 18:36 EDT ,
[2024-05-01] MEDS: Morphine 4 MG/ML Syringe IV ×2 (18:13→20:35)
[2024-05-03 14:20] LABS: Pathologist Review Reviewed
== END 2024-05-01 20:59 | disposition home or self-care (01) ==
PROVIDERS: Emergency Provider Emergency Medicine; Visit Provider Emergency Medicine
DX: R50.9 Fever, unspecified (principal); D64.9 Anemia, unspecified; S12.600D Unspecified displaced fracture of seventh cervical vertebra, subsequent encounter for fracture with routine healing; S40.211D Abrasion of right shoulder, subsequent encounter; S70.312D Abrasion, left thigh, subsequent encounter; V29.99XD Rider (driver) (passenger) of other motorcycle injured in unspecified traffic accident, subsequent encounter; Z79.01 Long term (current) use of anticoagulants; Z79.899 Other long term (current) drug therapy; Z87.891 Personal history of nicotine dependence
CPT/HCPCS: 71045; 76705; 80053; 81001; 85025; 87040; 96374; 96376; 99284; A4216

== ENCOUNTER → 2024-06-07 | Outpatient (CLI) | payer MEDICARE, MEDICAID, OTHER, SELFPAY ==
[2024-06-07 17:13] LABS: Amphetamine Urine VISTA NEGATIVE (<1000 ng/mL); Barbiturate Urine VISTA NEGATIVE (< 200 ng/mL); Benzodiazepine Urine VISTA POSITIVE (< 200 ng/mL); Cocaine Urine VISTA NEGATIVE (< 300 ng/mL); Ecstacy Urine VISTA NEGATIVE (< 500 ng/mL); Methadone Urine VISTA NEGATIVE (< 300 ng/mL); PCP Urine VISTA NEGATIVE (< 25 ng/mL); THC Urine VISTA POSITIVE (< 50 ng/mL); Vista UDS pH Range 7
== END | disposition home or self-care (01) ==
PROVIDERS: Referring Provider Anesthesiology Pain Medicine; Visit Provider Anesthesiology Pain Medicine
DX: F11.20 Opioid dependence, uncomplicated (principal)
CPT/HCPCS: 80307